=== PATIENT | female | born 1975 | race Two or more races ===

== ENCOUNTER 2017-10-27 23:51 | Emergency (ER) | payer OTHER ==
[~2017-10-27] VITALS: Ht 162.6 cm; Wt 56.7 kg
[2017-10-28] MEDS ORDERED: CEFTRIAXONE 500 MG VIAL IM ONE (00:45)
[2017-10-28] MEDS ORDERED: LEVOTHYROXINE 88 MCG TABLET (00:45)
[2017-10-28] MEDS ORDERED: FLUCONAZOLE 100 MG TABLET PO ONE (00:45)
[2017-10-28 00:51] LABS: *BILIRUBIN,URIN NEGATIVE (NEGATIVE); *BLOOD, URINE 2+ (NEGATIVE); *CLARITY,URINE CLEAR (CLEAR); *COLOR,URINE LIGHT YELLOW (YELLOW); *KETONES,URINE NEGATIVE (NEGATIVE); *PROTEIN,URINE NEGATIVE (NEGATIVE); *UROBILINOGEN,URINE 0.2 E.U./dl (NORMAL); LEUKOCYTE ESTERASE ,URINE 1+ (NEGATIVE); NITRITE, URINE NEGATIVE (NEGATIVE); UGLUCOSE NEGATIVE (NEGATIVE)
[2017-10-28 00:59] LABS: *URINE HCG, QUAL NEGATIVE (NEGATIVE)
[2017-10-28 01:05] LABS: BACTERIA,URINE NONE SEEN /HPF (NONE SEEN); SQUAMOUS EPITHELIAL CELL,UR MODERATE /HPF (NONE SEEN); YEAST,URINE FEW /HPF (NONE SEEN)
[2017-10-28] MEDS ORDERED: CEFTRIAXONE 500 MG VIAL ONE (01:36)
[2017-10-28] MEDS ORDERED: FLUCONAZOLE 100 MG TABLET ONE (01:36)
--- NOTE | 2017-10-28 01:39 | NUR ---
Patient discharged to home in stable conditon. Written and verbal after care instructions given. Patient verbalizes understanding of instructions.
== END 2017-10-28 01:39 | disposition home or self-care (01) ==
LOC: ER 23:51
DX: Z20.2 Contact with and (suspected) exposure to infections with a predominantly sexual mode of transmission (principal)
CPT/HCPCS: 84703; 87081; 87110; 87210; A4663; J0696